=== PATIENT | female | born 1985 | race Caucasian/White ===

== ENCOUNTER → 2018-11-20 | Outpatient (CLI) | payer OTHER ==
--- NOTE | 2018-11-21 08:29 | CT ---
EXAMINATION TYPE: CT brain wo/w con DATE OF EXAM: 11/20/2018 COMPARISON: None INDICATION: c/o headaches, dizziness, light-headed, syncopal episodes, ringing in ears. DLP: 1999.6 mGycm, Automated exposure control for dose reduction was used. CONTRAST: [address] of the brain is performed utilizing 3 mm thick sections through the posterior fossa and 3 mm thick sections through the remaining calvarium. Study is performed within 24 hours of arrival to the [facility]. No abnormal hyperdensity is present to suggest an acute intracranial hemorrhage. No mass lesion is evident. No acute infarcts are evident. Ventricles and sulci are appropriate for the patient age. Paranasal sinuses and mastoid air cells within the [id number] are clear. Internal auditory canals appear normal without expansion or erosion. No abnormal enhancement is evident. IMPRESSIONS: 1. Normal pre and postcontrast CT brain.
== END | disposition home or self-care (01) ==
LOC: RADCTMAIN 17:33
PROVIDERS: ATTEND Family Medicine
DX: R55 Syncope and collapse (principal); R42 Dizziness and giddiness; G44.52 New daily persistent headache (NDPH)
CPT/HCPCS: 70470; Q9967